=== PATIENT | male | born 1965 | race Caucasian/White ===

== ENCOUNTER 2018-11-20 10:39 | Outpatient (CLI) | payer OTHER ==
--- NOTE | 2018-11-20 11:58 | RAD ---
2 VIEWS CHEST: Date: 11/20/18 PROVIDED CLINICAL HISTORY: Cough. FINDINGS: Cardiac and mediastinal silhouette is within normal limits. Lungs appear clear. No pleural fluid or p neumothorax apparent. IMPRESSION: No evidence for an acute cardiopulmonary process. POS: OFF
== END 2018-11-20 10:40 | disposition home or self-care (01) ==
LOC: RAD-FRANK 10:39
PROVIDERS: ATTEND Nurse Practitioner Family
DX: R05 Cough (principal)
CPT/HCPCS: 71046

== ENCOUNTER 2019-09-11 13:32 | Outpatient (CLI) | payer OTHER ==
--- NOTE | 2019-09-11 14:00 | RAD ---
Chest one Abdomen 2 views HISTORY: Chest and abdomen pain. Bloating. FINDINGS: Cardiac silhouette and pulmonary vasculature are unremarkable. Mediastinum is midline. No c onfluent airspace consolidation or evidence of free subdiaphragmatic gas. Gas and stool overlie the colon and rectum. No differential air-fluid levels or evidence of free intr aperitoneal gas. IMPRESSION : No abnormalities are demonstrated.
== END 2019-09-11 13:33 | disposition home or self-care (01) ==
LOC: RAD-FRANK 13:32
PROVIDERS: ATTEND Nurse Practitioner Family
DX: K44.9 Diaphragmatic hernia without obstruction or gangrene (principal); R10.9 Unspecified abdominal pain; R14.0 Abdominal distension (gaseous)
CPT/HCPCS: 74022

== ENCOUNTER 2021-01-26 13:49 | Emergency (ER) | payer OTHER ==
[2021-01-26] MEDS ORDERED: Acetaminophen 325 MG TAB ONE (17:19)
== END 2021-01-26 18:05 | disposition home or self-care (01) ==
LOC: ERS 13:49
DX: S10.93XA Contusion of unspecified part of neck, initial encounter (principal); M62.838 Other muscle spasm; V69.9XXA Occupant (driver) (passenger) of heavy transport vehicle injured in unspecified traffic accident, initial encounter
CPT/HCPCS: 72040